=== PATIENT | female | born 1965 | race Caucasian/White ===

== ENCOUNTER 2018-08-16 21:45 | Emergency (ER) | payer SELFPAY ==
[~2018-08-16] VITALS: Wt 81.7 kg
[2018-08-16 21:58] VITALS: PULSE 97
[2018-08-16] MEDS ORDERED: ACETAMINOPHEN 500 MG TAB PO STA (22:54)
[2018-08-17] MEDS ORDERED: ACET500C5 PO (00:33)
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
[2018-08-17 01:01] VITALS: BP 126/75; RESP 18
== END 2018-08-17 01:10 | disposition home or self-care (01) ==
LOC: FTE 21:45
DX: S06.0X9A Concussion with loss of consciousness of unspecified duration, initial encounter (principal); S00.83XA Contusion of other part of head, initial encounter; Y04.2XXA Assault by strike against or bumped into by another person, initial encounter
CPT/HCPCS: 70450; 71100; 72125